=== PATIENT | female | born 2005 | race African-American/Black ===

== ENCOUNTER 2023-07-10 19:30 | Emergency (ER) | payer MEDICAID, SELFPAY ==
[2023-07-10 20:14] VITALS: BP 127/89; PULSE 104; RESP 20; O2SAT 98
--- NOTE | 2023-07-10 20:19 | ED.BACK1 ---
HPI - Back Pain/Injury General Chief Complaint: Back Pain/Injury Stated Complaint: Lower Back Pain Time Seen by Provider: 07/10/23 20:00 Source: patient Mode of arrival: walk-in Limitations: no limitations History of Present Illness HPI Narrative: patient woke with pain in the right lower back. No known injury. Pain radiates down into the right buttock. She denied any bowel or bladder symptoms. No weakness, paralysis or sensory changes in the LEs. No relief with ibuprofen at home. Related Data Previous Rx's Medication Instructions Recorded methocarbamol 750 mg tablet 750 mg PO Q6H PRN pain #30 tabs 07/10/23 nabumetone 750 mg tablet 750 mg PO BID PRN pain #20 tabs 07/10/23 Allergies Allergy/AdvReac Type Severity Reaction Status Date / Time No Known Drug Allergies Allergy Verified 07/10/23 20:19 PFSH PFSH Social History Smoking status: Light tobacco smoker Exam Narrative Exam Narrative: General: Alert, no acute distress, patient resting comfortably Skin: warm, intact, no pallor noted Head: Normocephalic, atraumatic Eye: Normal conjunctiva Respiratory: No acute distress Abdomen: Normal bowel sounds, soft, nontender, no masses detected. No rebound, guarding, or rigidity noted. Back: inspection of the back shows no obvious deformity, no swelling, no ecchymosis, contusion, abrasion, swelling, erythema, fluctuance or induration. Tenderness noted to right paralumbar soft tissue and buttock. Straight leg raise on left is negative. Straight leg raise on right is positive. No CVA tenderness noted bilaterally. Musculoskeletal: No deformity noted to bilateral lower extremities. no cyanosis or mottling noted. normal pulses at DP and PT 2+ bilaterally and symmetrically. Normal 5/5 strength at ankles with dorsiflexion and plantar flexion. Patient is able to ambulate. Normal sensation noted to both lower extremities. Neurological: AAOx4, normal sensory and motor observed. L5-S1 reflexes intact symmetrically. DTR 2+ at patellar bilaterally. Psychiatric: Cooperative and interactive. Constitutional Vital Signs, click to edit/add: Last Vital Signs Pulse 104 H 07/10/23 20:14 Resp 20 07/10/23 20:14 BP 127/89 07/10/23 20:14 Pulse Ox 98 07/10/23 20:14 O2 Del Method Room Air 07/10/23 20:14 Course Vital Signs Vital signs: Vital Signs Pulse Rate 104 H 07/10/23 20:14 Respiratory Rate 20 07/10/23 20:14 Blood Pressure 127/89 07/10/23 20:14 Pulse Oximetry 98 07/10/23 20:14 Oxygen Delivery Method Room Air 07/10/23 20:14 Pulse Rate 104 H 07/10/23 20:14 Respiratory Rate 20 07/10/23 20:14 Blood Pressure 127/89 07/10/23 20:14 Pulse Oximetry 98 07/10/23 20:14 Oxygen Delivery Method Room Air 07/10/23 20:14 MDM - Back Pain/Injury MDM Narrative Medical decision making narrative: No neuro deficit or other finding to suggest acute cauda equina syndrome. No need for imaging based on history and examination. Patient given IM Solumedrol and IM Toradol and discharged home with prescriptions for Relafen and Robaxin. Discharge Plan Discharge Chief Complaint: Back Pain/Injury Clinical Impression: Low back pain Patient Disposition: Home, Self-Care Time of Disposition Decision: 20:17 Prescriptions / Home Meds: New nabumetone 750 mg tablet 750 mg PO BID PRN (Reason: pain) Qty: 20 0RF methocarbamol 750 mg tablet 750 mg PO Q6H PRN (Reason: pain) Qty: 30 0RF Instructions: Acute Low Back Pain (ED) Stand Alone Forms: Portal Instructions Referrals: Physician,Non-Staff, MD [Primary Care Provider] - 1 week Discharge Date/Time: 07/10/23 20:39
[2023-07-10] MEDS: KETOROLAC TROMETHAMINE 60 MG/2 ML VIAL IM (20:34)
[2023-07-10] MEDS: METHYLPREDNISOLONE SOD SUCC PF 125 MG/2 ML VIAL IM (20:34)
== END 2023-07-10 20:39 | disposition home or self-care (01) ==
PROVIDERS: Emergency Provider Emergency Medicine
DX: M54.50 Low back pain, unspecified (principal); F17.210 Nicotine dependence, cigarettes, uncomplicated
CPT/HCPCS: 96372; 99284; J2930